=== PATIENT | female | born 1970 | race Caucasian/White ===

== ENCOUNTER 2018-03-11 11:32 | Outpatient (CLI) | payer BC ==
[2018-03-11 17:39] LABS: INR 0.9 (0.8-1.2); PT - PROTHROMBIN TIME 10.3 secs (9.9-12.6)
== END 2018-03-11 11:33 | disposition home or self-care (01) ==
LOC: LAB.F 11:32
PROVIDERS: ATTEND Podiatrist
DX: Z01.818 Encounter for other preprocedural examination (principal)
CPT/HCPCS: 36415; 85610; 85730